=== PATIENT | female | born 1985 | race American Indian/Alaskan Native ===

== ENCOUNTER 2018-12-04 16:30 | Emergency (ER) | payer OTHER ==
--- NOTE | 2018-12-04 17:01 | Emergency Department Report ---
Blank Doc - Documentation Documentation: This is a 33-year-old female that presents with URI symptoms. Stated has chest pain during cough and worse while coughing. This initial assessment/diagnostic orders/clinical plan/treatment(s) is/are subject to change based on patient's health status, clinical progression and re- assessment by fellow clinical providers in the ED. Further treatment and workup at subsequent clinical providers discretion. Patient/guardians urged not to elope from the ED as their condition may be serious if not clinically assessed and managed. Initial orders include: 1- Patient sent to [facility] for further evaluation and treatment 2- EKG 3- CXR
[2018-12-04 17:02] VITALS: BP 151/99
--- NOTE | 2018-12-04 18:11 | XRay Report ---
PROCEDURE: XR CHEST ROUTINE 2V TECHNIQUE: PA and lateral chest radiographs were obtained. HISTORY: cough/cp COMPARISONS: None. FINDINGS: Heart: Normal. Mediastinum/Vessels: Normal. Lungs/Pleural space: No infiltrate, effusion, or pneumothorax. Bony thorax: No acute osseous abnormality. IMPRESSION: No pulmonary infiltrates are identified. This document is electronically signed by Eugenia Ge MD., Dec 04 2018 06:09:43 PM ET
[2018-12-04] MEDS ORDERED: SOLU-Medrol IM ONE (19:51)
[2018-12-04] MEDS ORDERED: TYLENOL PO ONE (19:51)
[2018-12-04] MEDS ORDERED: ZOFRAN ODT PO ONE (19:52)
--- NOTE | 2018-12-04 21:25 | Emergency Department Report ---
- General Chief Complaint: Chest Pain Stated Complaint: CHEST PAIN/VOMIT/COLD Time Seen by Provider: 12/04/18 16:59 Source: patient Mode of arrival: Ambulatory Limitations: No Limitations - History of Present Illness Initial Comments: Patient is a 33-year-old -[place] female with no past medical history presents to the ED with complaint of acute onset persistent nasal and sinus congestion, frontal sinus pressure, dry cough, intermittent nausea and vomiting with diarrhea for the last 4 days. Patient states that in the last 2 days the symptoms have been persistent and that she is unable to sleep. Patient denies fever, chills, dizziness, vomiting, dysuria, urinary frequency and urgency over change in vision or neck pain. Patient states that that is no one else at home with similar symptoms. MD Complaint: cough, sore throat, rhinorrhea, nasal congestion, sinus pain, other (nausea, vomiting and diarrhea) -: Sudden, days(s) (4) Severity: moderate Severity scale (0 -10): 6 Quality: sharp, aching Consistency: constant Improves With: nothing Worsens With: nothing Associated Symptoms: myalgias, headache, rhinorrhea, nasal congestion, sore throat, cough, nausea, vomiting, diarrhea. denies: fever, chills, chest pain, abdominal pain, dysuria, confusion, weight loss, epistaxis, hoarseness, ear pain Treatments Prior to Arrival: none - Related Data Previous Rx's Medication Instructions Recorded Last Taken Type Azithromycin [Zithromax Z-RUBY] 250 mg PO DAILY #6 tablet 12/04/18 Unknown Rx Cetirizine HCl [Zyrtec] 10 mg PO DAILY #30 tablet 12/04/18 Unknown Rx Diphenoxylate/Atropine [Lomotil] 1 tab PO Q4H PRN #15 tablet 12/04/18 Unknown Rx Ibuprofen [Motrin] 800 mg PO Q8HR PRN #20 tablet 12/04/18 Unknown Rx Ondansetron [Zofran Odt] 4 mg PO Q6HR #15 tab.rapdis 12/04/18 Unknown Rx Allergies Allergy/AdvReac Type Severity Reaction Status Date / Time No Known Allergies Allergy Unverified 12/04/18 16:31 ED Review of Systems ROS: Stated complaint: CHEST PAIN/VOMIT/COLD Other details as noted in HPI Constitutional: no symptoms reported, see HPI, malaise, weakness Eyes: as per HPI. denies: eye pain, eye discharge, vision change ENT: as per HPI, throat pain, congestion. denies: ear pain, dental pain, hearing loss, epistaxis Respiratory: no symptoms reported, see HPI, cough. denies: shortness of breath, SOB with exertion, SOB at rest, wheezing Cardiovascular: as per HPI. denies: chest pain, palpitations, dyspnea on exertion, edema, syncope, paroxysmal nocturnal dyspnea Endocrine: no symptoms reported. denies: see HPI, excessive sweating, flushing, intolerance to cold, increased hunger, increased thirst, increased urine, unexplained weight loss Gastrointestinal: as per HPI, nausea, vomiting, diarrhea. denies: abdominal pain, hematemesis, hematochezia Genitourinary: as per HPI. denies: frequency, hematuria, discharge, dyspareunia Musculoskeletal: as per HPI, arthralgia, myalgia. denies: back pain, joint swelling Skin: as per HPI. denies: rash, lesions, change in color, change in hair/nails, pruritus Neurological: as per HPI, headache. denies: weakness, numbness, paresthesias, abnormal gait, vertigo Psychiatric: as per HPI, homicidal thoughts. denies: anxiety, auditory hallucinations, visual hallucinations Hematological/Lymphatic: as per HPI ED Past Medical Hx - Past Medical History Previous Medical History?: No - Surgical History Past Surgical History?: No - Social History Smoking Status: Current Every Day Smoker Substance Use Type: Alcohol, Marijuana - Medications Home Medications: Home Medications Medication Instructions Recorded Confirmed Last Taken Type Azithromycin [Zithromax Z-RUBY] 250 mg PO DAILY #6 tablet 12/04/18 Unknown Rx Cetirizine HCl [Zyrtec] 10 mg PO DAILY #30 tablet 12/04/18 Unknown Rx Diphenoxylate/Atropine [Lomotil] 1 tab PO Q4H PRN #15 tablet 12/04/18 Unknown Rx Ibuprofen [Motrin] 800 mg PO Q8HR PRN #20 tablet 12/04/18 Unknown Rx Ondansetron [Zofran Odt] 4 mg PO Q6HR #15 tab.rapdis 12/04/18 Unknown Rx ED Physical Exam - General Limitations: No Limitations General appearance: alert, in no apparent distress - Head Head exam: Present: atraumatic, normocephalic, normal inspection - Eye Eye exam: Present: normal appearance, PERRL, EOMI. Absent: scleral icterus, conjunctival injection, periorbital swelling, periorbital tenderness Pupils: Present: normal accommodation - ENT ENT exam: Present: normal exam, normal orophraynx, mucous membranes moist, normal external ear exam, other (grossly congested nasal passages) - Neck Neck exam: Present: normal inspection, full ROM - Respiratory Respiratory exam: Present: normal lung sounds bilaterally. Absent: respiratory distress, wheezes, rales, rhonchi, chest wall tenderness, accessory muscle use, decreased breath sounds - Cardiovascular Cardiovascular Exam: Present: regular rate, normal rhythm, normal heart sounds. Absent: bradycardia, tachycardia - GI/Abdominal GI/Abdominal exam: Present: soft, normal bowel sounds. Absent: tenderness, hyperactive bowel sounds, hypoactive bowel sounds - Extremities Exam Extremities exam: Present: normal inspection, full ROM, normal capillary refill. Absent: calf tenderness - Back Exam Back exam: Present: normal inspection, full ROM, tenderness. Absent: CVA tenderness (R), CVA tenderness (L), paraspinal tenderness, vertebral tenderness - Neurological Exam Neurological exam: Present: alert, oriented X3, CN II-XII intact, normal gait, reflexes normal - Psychiatric Psychiatric exam: Present: normal affect - Skin Skin exam: Present: warm, dry, intact, normal color ED Course Vital Signs 12/04/18 17:00 Temperature 99.1 F Pulse Rate 75 Respiratory 20 Rate Blood Pressure 151/99 O2 Sat by Pulse 100 Oximetry ED Medical Decision Making - Radiology Data Radiology results: report reviewed, image reviewed Chest x-ray shows no acute process - Medical Decision Making Patient is alert and oriented 3 and his medicine in distress with normal vital signs. Chest x-ray shows no acute pulmonary abnormalities. On reevaluation, patient vital signs are stable and patient feeling better with treatment. Elena hagen was discharged home with medications and advised follow-up with her primary care physician in 5-7 days for reevaluation. Patient was advised to return to the ED immediately if symptoms get worse. - Differential Diagnosis acute upper resp, flu like symptoms, gastroenteritis Critical care attestation.: If time is entered above; I have spent that time in minutes in the direct care of this critically ill patient, excluding procedure time. ED Disposition Clinical Impression: Acute upper respiratory infection, Acute frontal sinusitis, unspecified, Nausea, vomiting and diarrhea Disposition: - TO HOME OR SELFCARE Is pt being admited?: No Does the pt Need Aspirin: No Condition: Stable Instructions: Acute Nausea and Vomiting (ED), Upper Respiratory Infection (ED), Gastroenteritis (ED) Additional Instructions: Take medications with food drink plenty of fluids and follow up with your Primary care physician as advised. Return to the ED immediately if symptoms get worse Prescriptions: Diphenoxylate/Atropine [Lomotil] 1 tab PO Q4H PRN #15 tablet PRN Reason: Diarrhea Ibuprofen [Motrin] 800 mg PO Q8HR PRN #20 tablet PRN Reason: Pain , Severe (7-10) Azithromycin [Zithromax Z-RUBY] 250 mg PO DAILY #6 tablet Ondansetron [Zofran Odt] 4 mg PO Q6HR #15 tab.rapdis Cetirizine HCl [Zyrtec] 10 mg PO DAILY #30 tablet Referrals: [facility] MD YAZAN [Primary Care Provider] - 3-5 Days Time of Disposition: 21:28 Print Language: MONEGASQUE
== END 2018-12-04 21:35 | disposition home or self-care (01) ==
LOC: ED 16:30
DX: J01.10 Acute frontal sinusitis, unspecified (principal); R11.2 Nausea with vomiting, unspecified; R19.7 Diarrhea, unspecified; M79.10 Myalgia, unspecified site; F17.200 Nicotine dependence, unspecified, uncomplicated; F12.10 Cannabis abuse, uncomplicated
CPT/HCPCS: 71046; 93005; 93010; 96372; 99283; J2930; Q0162

== ENCOUNTER 2019-01-02 15:02 | Emergency (ER) | payer SELFPAY ==
--- NOTE | 2019-01-02 15:38 | Emergency Department Report ---
Chief Complaint: Extremity Injury, Lower Stated Complaint: BI KNEE/LEG INJURY Time Seen by Provider: 01/02/19 15:35 - HPI History of Present Illness: This is a 33 y.o. F. that presents to the ER with bilateral knee pain for 4 days. Patient states she slipped on gravel at [employer] and fell to knees. - Exam Vital Signs: Vital Signs 01/02/19 15:35 Temperature 98.5 F Pulse Rate 78 Respiratory 18 Rate Blood Pressure 137/93 O2 Sat by Pulse 95 Oximetry MSE screening note: Focused history and physical exam performed. Due to findings the following was ordered: This initial assessment/diagnostic orders/clinical plan/treatment(s) is/are subject to change based on patient's health status, clinical progression and re- assessment by fellow clinical providers in the ED. Further treatment and workup at subsequent clinical providers discretion. Patient/guardians urged not to elope from the ED as their condition may be serious if not clinically assessed and managed. Initial orders include: XR bilateral knees [facility] for further evaluation ED Disposition for MSE Condition: Stable
--- NOTE | 2019-01-02 16:58 | XRay Report ---
PROCEDURE: XR KNEE BILAT 3V TECHNIQUE: Bilateral knees, 3 views HISTORY: bilateral knee pain, fall COMPARISONS: None available FINDINGS: Within the right knee there is medial joint space narrowing. No fracture or dislocation is seen bilaterally. No large joint effusion is seen bilaterally. No focal osseous lesions. IMPRESSION: No fracture or dislocation is seen bilaterally. This document is electronically signed by Eugenia Ge MD., January 02 2019 04:56:24 PM ET
[2019-01-02] MEDS ORDERED: TYLENOL PO ONE (19:19)
[2019-01-02] MEDS ORDERED: IBUPROFEN PO ONE (19:19)
[2019-01-02] MEDS ORDERED: ZOFRAN ODT PO ONE (19:29)
[2019-01-02] MEDS ORDERED: NORCO 5/325 PO ONE (19:29)
[2019-01-02 20:13] VITALS: BP 111/68
--- NOTE | 2019-01-02 20:26 | Emergency Department Report ---
ED Lower Extremity HPI - General Chief Complaint: Extremity Injury, Lower Stated Complaint: BI KNEE/LEG INJURY Time Seen by Provider: 01/02/19 15:35 Source: patient Mode of arrival: Wheelchair Limitations: No Limitations - History of Present Illness Initial Comments: Patient is a 33-year-old -[place] female with no past medical history presents to the ED with complaint of acute onset persistent pain in bilateral knees and swelling after she tripped and fell down at [employer] 4 days ago and landed on her knees. Patient states that the pain was initially mild but in the last 3 days the patient has been worsening such that she is unable to ambulate because of severe pain. Patient denies head or neck injury, hip pain, low back pain, chest pain, shortness of breath, dizziness, numbness and tingling of lower extremities bilaterally or loss of consciousness and head injury. MD Complaint: knee injury (bilateral) -: Sudden, days(s) (4) Injury: Knee: Right, Left (Pain and swelling) Type of Injury: blunt Place: street/outdoors Severity: severe Severity scale (0 -10): 8 Improves With: nothing Worsens With: weight bearing, movement, palpation Context: fall Other Symptoms: other (None) Associated Symptoms: swelling, able to partially bear weight. denies: numbness, tingling, ambulatory Treatments Prior to Arrival: NSAIDS - Related Data Previous Rx's Medication Instructions Recorded Last Taken Type Azithromycin [Zithromax Z-RUBY] 250 mg PO DAILY #6 tablet 12/04/18 Unknown Rx Cetirizine HCl [Zyrtec] 10 mg PO DAILY #30 tablet 12/04/18 Unknown Rx Diphenoxylate/Atropine [Lomotil] 1 tab PO Q4H PRN #15 tablet 12/04/18 Unknown Rx Ibuprofen [Motrin] 800 mg PO Q8HR PRN #20 tablet 12/04/18 Unknown Rx Ondansetron [Zofran Odt] 4 mg PO Q6HR #15 tab.rapdis 12/04/18 Unknown Rx Acetaminophen/Codeine [Tylenol 1 tab PO Q6H PRN #15 tab 01/02/19 Unknown Rx /Codeine # 3 tab] Ibuprofen [Motrin] 800 mg PO Q8HR PRN #20 tablet 01/02/19 Unknown Rx methOCARBAMOL [Robaxin TAB] 500 mg PO Q8H PRN #21 tablet 01/02/19 Unknown Rx Allergies Allergy/AdvReac Type Severity Reaction Status Date / Time No Known Allergies Allergy Verified 01/02/19 15:13 ED Review of Systems ROS: Stated complaint: BI KNEE/LEG INJURY Other details as noted in HPI Comment: All other systems reviewed and negative Constitutional: no symptoms reported, see HPI. denies: chills, diaphoresis, fever, malaise Eyes: as per HPI. denies: eye discharge, vision change ENT: as per HPI. denies: ear pain, throat pain, dental pain, hearing loss Respiratory: no symptoms reported, see HPI. denies: cough, orthopnea, shortness of breath, SOB with exertion, SOB at rest Cardiovascular: as per HPI. denies: chest pain, palpitations, dyspnea on exertion, orthopnea, edema, syncope, paroxysmal nocturnal dyspnea Endocrine: no symptoms reported, see HPI. denies: excessive sweating, flushing, intolerance to cold, intolerance to heat, increased hunger, increased thirst Gastrointestinal: as per HPI. denies: abdominal pain, nausea, vomiting, diarrhea, constipation, hematemesis Genitourinary: as per HPI. denies: urgency, dysuria, frequency, hematuria, abnormal menses, dyspareunia Musculoskeletal: as per HPI, joint swelling (bilateral knees), arthralgia. denies: back pain Skin: as per HPI. denies: rash, lesions, change in color, change in hair/nails Neurological: as per HPI. denies: headache, weakness, numbness, paresthesias, confusion, abnormal gait, vertigo Psychiatric: as per HPI Hematological/Lymphatic: as per HPI ED Past Medical Hx - Past Medical History Previous Medical History?: No - Surgical History Past Surgical History?: No - Social History Smoking Status: Never Smoker Substance Use Type: Alcohol - Medications Home Medications: Home Medications Medication Instructions Recorded Confirmed Last Taken Type Azithromycin [Zithromax Z-RUBY] 250 mg PO DAILY #6 tablet 12/04/18 Unknown Rx Cetirizine HCl [Zyrtec] 10 mg PO DAILY #30 tablet 12/04/18 Unknown Rx Diphenoxylate/Atropine [Lomotil] 1 tab PO Q4H PRN #15 tablet 12/04/18 Unknown Rx Ibuprofen [Motrin] 800 mg PO Q8HR PRN #20 tablet 12/04/18 Unknown Rx Ondansetron [Zofran Odt] 4 mg PO Q6HR #15 tab.rapdis 12/04/18 Unknown Rx Acetaminophen/Codeine [Tylenol 1 tab PO Q6H PRN #15 tab 01/02/19 Unknown Rx /Codeine # 3 tab] Ibuprofen [Motrin] 800 mg PO Q8HR PRN #20 tablet 01/02/19 Unknown Rx methOCARBAMOL [Robaxin TAB] 500 mg PO Q8H PRN #21 tablet 01/02/19 Unknown Rx ED Physical Exam - General Limitations: No Limitations General appearance: alert, in no apparent distress - Head Head exam: Present: atraumatic, normocephalic, normal inspection - Eye Eye exam: Present: normal appearance, PERRL, EOMI. Absent: scleral icterus, conjunctival injection Pupils: Present: normal accommodation - ENT ENT exam: Present: normal exam, normal orophraynx, mucous membranes moist, TM's normal bilaterally, normal external ear exam - Neck Neck exam: Present: normal inspection, full ROM. Absent: tenderness, lymphadenopathy - Respiratory Respiratory exam: Present: normal lung sounds bilaterally. Absent: respiratory distress, wheezes, rales, rhonchi, chest wall tenderness, accessory muscle use, decreased breath sounds - Cardiovascular Cardiovascular Exam: Present: regular rate, normal rhythm - GI/Abdominal GI/Abdominal exam: Present: soft, normal bowel sounds. Absent: distended, tenderness, guarding, hyperactive bowel sounds, hypoactive bowel sounds, organomegaly - Rectal Rectal exam: Present: deferred - Extremities Exam Extremities exam: Present: normal inspection, tenderness (bilateral knees), normal capillary refill, joint swelling (bilateral knees). Absent: full ROM (de creased due to pain), pedal edema, calf tenderness - Back Exam Back exam: Present: normal inspection, full ROM. Absent: tenderness, CVA tenderness (R), CVA tenderness (L), muscle spasm - Neurological Exam Neurological exam: Present: alert, oriented X3, CN II-XII intact, normal gait, reflexes normal - Psychiatric Psychiatric exam: Present: normal affect - Skin Skin exam: Present: warm, dry, intact, ecchymosis (bilateral knees) ED Course Vital Signs 01/02/19 01/02/19 15:35 19:57 Temperature 98.5 F 98.0 F Pulse Rate 78 60 Respiratory 18 16 Rate Blood Pressure 137/93 111/68 O2 Sat by Pulse 95 100 Oximetry - Reevaluation(s) Reevaluation #1: 01/02/19 20:27 Patient is alert and oriented 3 and is not in distress with stable vital signs. The bilateral knee x-rays show no acute fractures or subluxations. The patient was treated for pain in the ED and discharged with a knee splinted with Harinder wraps. Patient was discharged home after being fitted with crutches, and is at home on pain medications and muscle relaxants, and patient advised to follow up with her primary care physician in 3-5 days for reevaluation or return to the ED immediately if symptoms get worse. ED Lower Extremity MDM - Radiology Data Radiology results: report reviewed, image reviewed No acute fractures - Medical Decision Making Patient is alert and oriented 3 and is not in distress with stable vital signs. The bilateral knee x-rays show no acute fractures or subluxations. The patient was treated for pain in the ED and discharged with a knee splinted with Harinder wraps. Patient's injuries are soft tissue-based since no fractures appreciated in the x-rays. However, cannot rule out a ligament injury from each of the knees. Patient was discharged home after being fitted with crutches, and is at home on pain medications and muscle relaxants, and patient advised to follow up with her primary care physician in 3-5 days for reevaluation or return to the ED immediately if symptoms get worse. - Differential Diagnosis Bilateral knee contusions; Bilateral knee sprains, knee ligament injuries Critical care attestation.: If time is entered above; I have spent that time in minutes in the direct care of this critically ill patient, excluding procedure time. ED Disposition Clinical Impression: Knee sprain, bilateral, Contusion of knee with skin surface intact Disposition: DC-01 TO HOME OR SELFCARE Is pt being admited?: No Does the pt Need Aspirin: No Condition: Stable Instructions: Knee Pain (ED), Knee Sprain (ED), Contusion in Adults (ED) Additional Instructions: Take medications with food, drink plenty of fluids and follow up with your primary care physician in 3-5 days for reevaluation. Return to the ED immediately if symptoms get worse. Prescriptions: Ibuprofen [Motrin] 800 mg PO Q8HR PRN #20 tablet PRN Reason: Pain , Severe (7-10) methOCARBAMOL [Robaxin TAB] 500 mg PO Q8H PRN #21 tablet PRN Reason: Spasms Acetaminophen/Codeine [Tylenol /Codeine # 3 tab] 1 tab PO Q6H PRN #15 tab PRN Reason: Pain , Severe (7-10) Referrals: TARUN KRISHNAMURTHY MD [Primary Care Provider] - 3-5 Days Forms: Work/School Release Form(ED) Time of Disposition: 20:32 Print Language: DUTCH
== END 2019-01-02 20:55 | disposition home or self-care (01) ==
LOC: ED 15:02
DX: S83.92XA Sprain of unspecified site of left knee, initial encounter (principal); S83.91XA Sprain of unspecified site of right knee, initial encounter; S80.02XA Contusion of left knee, initial encounter; S80.01XA Contusion of right knee, initial encounter; W01.0XXA Fall on same level from slipping, tripping and stumbling without subsequent striking against object, initial encounter; Y93.89 Activity, other specified; Y92.89 Other specified places as the place of occurrence of the external cause; Y99.8 Other external cause status
CPT/HCPCS: Q0162

== ENCOUNTER 2019-12-25 16:37 | Emergency (ER) | payer SELFPAY ==
[2019-12-25] MEDS ORDERED: ASPIRIN 325 MG TAB PO ONE (16:57)
--- NOTE | 2019-12-25 17:24 | XRay Report ---
CHEST 2 VIEWS INDICATION / CLINICAL INFORMATION: Chest Pain. COMPARISON: 12/04/2018. FINDINGS: SUPPORT DEVICES: None. HEART / MEDIASTINUM: The heart size and pulmonary vasculature are normal. The aorta is normal in chay teresa. LUNGS / PLEURA: No significant pulmonary or pleural abnormality. No pneumothorax. ADDITIONAL FINDINGS: No significant additional findings. IMPRESSION: No acute findings. Signer Name: Galindo Almendarez MD Signed: 12/25/2019 5:20 PM Workstation Name: [id number]
[2019-12-25 18:21] LABS: Basophils % (Auto) 0.7 % (0.0-1.8); Eosinophils # (Auto) 0.3 K/mm3 (0.0-0.4); Eosinophils % (Auto) 4.3 % (0.0-4.3); Hematocrit 35.3 % (30.3-42.9); Hemoglobin 11.8 gm/dl (10.1-14.3); Lymphocytes # (Auto) 2.8 K/mm3 (1.2-5.4); Lymphocytes % (Auto) 38.1 % (13.4-35.0); Mean Corpuscular HGB Conc 33 % (30-34); Mean Corpuscular Volume 72 fl (79-97); Monocytes # (Auto) 0.6 K/mm3 (0.0-0.8); Monocytes % (Auto) 8.1 % (0.0-7.3); Platelet Count 288 K/mm3 (140-440); Red Blood Count 4.93 M/mm3 (3.65-5.03); Red Cell Distribution Width 15.3 % (13.2-15.2)
[2019-12-25 18:47] LABS: BUN/Creatinine Ratio 16; Blood Urea Nitrogen 14 mg/dL (7-17); Calcium 9.6 mg/dL (8.4-10.2); Hemolysis Index 2
--- NOTE | 2019-12-25 19:59 | Emergency Department Report ---
ED Chest Pain HPI - General Chief Complaint: Chest Pain Stated Complaint: ELEVATED BLOOD PRESSURE Source: patient Mode of arrival: Ambulatory Limitations: No Limitations - History of Present Illness Initial Comments: 34-year-old female with no known past medical history, presents to ED with chest pain and headache. Patient reports pain has been intermittent for approximately 4 months now. She states the pain is left-sided, sharp, lasts for only a few seconds at a time. She denies any associated shortness of breath, nausea or vomiting, diaphoresis, leg pain or swelling. Patient also reports that she has been having left-sided headaches over the last week with some associated dizziness. Patient states today she had chest pain and headache at the same time, so she decided to go to an urgent care facility. Patient states her blood pressure was elevated at home, and at the urgent care, and she was instructed to come to the ER. Patient denies any known history of hypertension, not currently taking any medications. Patient states at this time, headache and chest pain have resolved. MD Complaint: chest pain -: month(s) (4) Onset: during rest Pain Location: left chest Pain Radiation: none Severity: moderate Quality: sharp Consistency: intermittent Improves With: nothing Worsens With: nothing re: nausea. denies: vomting, diaphoresis, dyspnea Other Symptoms: denies: cough, fever, leg swelling - Related Data Previous Rx's Medication Instructions Recorded Last Taken Type Azithromycin [Zithromax Z-RUBY] 250 mg PO DAILY #6 tablet 12/04/18 Unknown Rx Cetirizine HCl [Zyrtec] 10 mg PO DAILY #30 tablet 12/04/18 Unknown Rx Diphenoxylate/Atropine [Lomotil] 1 tab PO Q4H PRN #15 tablet 12/04/18 Unknown Rx Ibuprofen [Motrin] 800 mg PO Q8HR PRN #20 tablet 12/04/18 Unknown Rx Ondansetron [Zofran Odt] 4 mg PO Q6HR #15 tab.rapdis 12/04/18 Unknown Rx Acetaminophen/Codeine [Tylenol 1 tab PO Q6H PRN #15 tab 01/02/19 Unknown Rx /Codeine # 3 tab] Ibuprofen [Motrin] 800 mg PO Q8HR PRN #20 tablet 01/02/19 Unknown Rx methOCARBAMOL [Robaxin TAB] 500 mg PO Q8H PRN #21 tablet 01/02/19 Unknown Rx Butalb/Acetamin/Caff 50-325-40 1 tab PO Q6HR PRN #10 tab 12/25/19 Unknown Rx [Fioricet] Allergies Allergy/AdvReac Type Severity Reaction Status Date / Time No Known Allergies Allergy Verified 01/02/19 15:13 Heart Score - HEART Score History: Slightly suspicious EKG: Normal Age: < 45 Risk factors: 1-2 risk factors Troponin: < normal limit HEART Score: 1 ED Review of Systems ROS: Stated complaint: ELEVATED BLOOD PRESSURE Other details as noted in HPI Comment: All other systems reviewed and negative Constitutional: denies: chills, fever ENT: denies: throat pain Respiratory: denies: cough, shortness of breath Cardiovascular: chest pain Gastrointestinal: nausea. denies: vomiting Neurological: headache. denies: weakness, numbness ED Past Medical Hx - Past Medical History Previous Medical History?: No - Surgical History Past Surgical History?: No - Social History Smoking Status: Never Smoker Substance Use Type: None - Medications Home Medications: Home Medications Medication Instructions Recorded Confirmed Last Taken Type Azithromycin [Zithromax Z-RUBY] 250 mg PO DAILY #6 tablet 12/04/18 Unknown Rx Cetirizine HCl [Zyrtec] 10 mg PO DAILY #30 tablet 12/04/18 Unknown Rx Diphenoxylate/Atropine [Lomotil] 1 tab PO Q4H PRN #15 tablet 12/04/18 Unknown Rx Ibuprofen [Motrin] 800 mg PO Q8HR PRN #20 tablet 12/04/18 Unknown Rx Ondansetron [Zofran Odt] 4 mg PO Q6HR #15 tab.rapdis 12/04/18 Unknown Rx Acetaminophen/Codeine [Tylenol 1 tab PO Q6H PRN #15 tab 01/02/19 Unknown Rx /Codeine # 3 tab] Ibuprofen [Motrin] 800 mg PO Q8HR PRN #20 tablet 01/02/19 Unknown Rx methOCARBAMOL [Robaxin TAB] 500 mg PO Q8H PRN #21 tablet 01/02/19 Unknown Rx Butalb/Acetamin/Caff 50-325-40 1 tab PO Q6HR PRN #10 tab 12/25/19 Unknown Rx [Fioricet] ED Physical Exam - General Limitations: No Limitations General appearance: alert, in no apparent distress, obese - Head Head exam: Present: atraumatic, normocephalic - Eye Eye exam: Present: normal appearance, PERRL, EOMI - ENT ENT exam: Present: mucous membranes moist - Neck Neck exam: Present: normal inspection - Respiratory Respiratory exam: Present: normal lung sounds bilaterally. Absent: respiratory distress - Cardiovascular Cardiovascular Exam: Present: regular rate, normal rhythm - GI/Abdominal GI/Abdominal exam: Present: soft. Absent: distended, tenderness - Extremities Exam Extremities exam: Present: normal inspection. Absent: pedal edema, calf tenderness - Neurological Exam Neurological exam: Present: alert, oriented X3, CN II-XII intact. Absent: motor sensory deficit - Psychiatric Psychiatric exam: Present: normal affect, normal mood - Skin Skin exam: Present: warm, dry, intact, normal color ED Course Vital Signs 12/25/19 12/25/19 12/25/19 16:55 20:10 22:39 Temperature 98.6 F Pulse Rate 71 69 59 L Respiratory 14 16 16 Rate Blood Pressure 153/100 Blood Pressure 119/80 120/82 [Left] O2 Sat by Pulse 100 100 100 Oximetry ED Medical Decision Making - Lab Data Result diagrams: 12/25/19 17:44 12/25/19 17:44 - EKG Data -: EKG Interpreted by Wy EKG shows normal: sinus rhythm, axis, intervals, QRS complexes, ST-T waves Rate: normal - EKG Data Interpretation: no acute changes - Radiology Data Radiology results: report reviewed, image reviewed - Medical Decision Making Workup unremarkable. EKG normal, troponin negative x 2. CT Head negative. No neuro deficits on exam. BP improved without intervention. Fioricet given for JANG. Pt reports relief of pain. Pt feels comfortable w/ discharge home. Outpt f/u advised, return precautions given. - Differential Diagnosis ACS, tension JANG, hypertensive JANG, migraine JANG Critical care attestation.: If time is entered above; I have spent that time in minutes in the direct care of this critically ill patient, excluding procedure time. ED Disposition Clinical Impression: Headache, acute, Chest pain Disposition: TO HOME OR SELFCARE Is pt being admited?: No Condition: Stable Instructions: Chest Pain (ED), Acute Headache (ED) Prescriptions: Butalb/Acetamin/Caff 50-325-40 [Fioricet] 1 tab PO Q6HR PRN #10 tab PRN Reason: Headache Referrals: PRIMARY CARE, [Primary Care Provider] - 3-5 Days [facility] [Provider Group] - 3-5 Days Time of Disposition: 22:18
[2019-12-25] MEDS ORDERED: BUTALB/ACETAMINOPHEN/CAFFEINE TAB PO ONE (20:58)
--- NOTE | 2019-12-25 21:36 | Cat Scan Report ---
CT HEAD WITHOUT CONTRAST INDICATION / CLINICAL INFORMATION: Headache TECHNIQUE: All CT scans at this location are performed using CT dose reduction for ALARA by means of automated e xposure control. COMPARISON: None available. FINDINGS: HEMORRHAGE: No evidence of intracranial hemorrhage or extra-axial fluid collection. EXTRA-AXIAL SPACES: Cortical sulci, sylvian fissures and basilar cisterns have an unremarkable appear ance. VENTRICULAR SYSTEM: The ventricular system is of normal size and configuration. CEREBRAL PARENCHYMA: No areas of abnormal brain parenchymal attenuation are identified. There is no i ndication of recent infarction. MIDLINE SHIFT OR HERNIATION: There is no mass effect. CEREBELLUM / BRAINSTEM: Brainstem and cerebellum have an unremarkable appearance. Sella turcica: Sella turcica is dilated but largely filled with CSF attenuation material consistent w ith "empty sella turcica". INTRACRANIAL VESSELS:No abnormalities are identified on this noncontrast head CT. ORBITS: visualized portions of the orbits have an unremarkable appearance. SOFT TISSUES of HEAD: No significant abnormality. CALVARIUM: Evaluation of bone windows reveals no abnormalities. PARANASAL SINUSES / MASTOID AIR CELLS: Air-fluid level is present in the dependent portion of the rig ht sphenoid sinus. Paranasal sinuses are otherwise free from inflammatory mucosal disease. Mastoid ai r cells are normally pneumatized. ADDITIONAL FINDINGS: None. IMPRESSION: 1. No intracranial abnormality. 2. Inflammatory changes right sphenoid sinus. Signer Name: Michael Espinal MD Signed: 12/25/2019 9:32 PM Workstation Name: [id number]
[2019-12-25 22:39] VITALS: BP 120/82
== END 2019-12-25 22:51 | disposition home or self-care (01) ==
LOC: ED 16:37
DX: R07.89 Other chest pain (principal); R51 Headache
CPT/HCPCS: 36415; 70450; 71046; 80048; 84484; 85025; 93005

== ENCOUNTER 2020-10-10 18:23 | Emergency (ER) | payer SELFPAY ==
--- NOTE | 2020-10-10 18:58 | Event Note ---
ED Screening Note ED Screening Note: CO CP AND DIZZY BP ELEVATED DID NOT FOLLOW UP P SEEN IN NOVEMBER OF THIS YEAR This initial assessment/diagnostic orders/clinical plan/treatment(s) is/are subject to change based on patients health status, clinical progression and re- assessment by fellow clinical providers in the ED. Further treatment and workup at subsequent clinical providers discretion. Patient/guardian urged not to elope from the ED as their condition may be serious if not clinically assessed and managed. Initial orders include: LABS CT
[2020-10-10 19:14] LABS: Hematocrit 41.2 % (30.3-42.9); Hemoglobin 12.9 gm/dl (10.1-14.3); Mean Corpuscular HGB Conc 31 % (30-34); Mean Corpuscular Volume 75 fl (79-97); Platelet Count 263 K/mm3 (140-440); Red Blood Count 5.49 M/mm3 (3.65-5.03); Red Cell Distribution Width 14.5 % (13.2-15.2)
[2020-10-10 19:38] LABS: Alanine Aminotransferase 12 units/L (7-56); Albumin 4.3 g/dL (3.9-5); BUN/Creatinine Ratio 9; Blood Urea Nitrogen 7 mg/dL (7-17); Calcium 9.4 mg/dL (8.4-10.2); Hemolysis Index 16
[2020-10-10 19:57] LABS: Total Cells Counted 100
[2020-10-10 19:59] LABS: Ovalocytes Few; Platelet Estimate Consistent w Auto
--- NOTE | 2020-10-10 20:04 | Cat Scan Report ---
CT head/brain wo con INDICATION / CLINICAL INFORMATION: 35 years Female; DIZZY WITH HTN. TECHNIQUE: Routine CT head without contrast. All CT scans at this location are performed using CT dos e reduction for ALARA by means of automated exposure control. COMPARISON: The study is compared to previous CT of 12/25/2019. FINDINGS: BRAIN / INTRACRANIAL CONTENTS: The beam hardening degrades image quality. However, the brain appears to demonstrate appropriate attenuation without significant interval change. The ventricular system al so remains within normal limits in size and configuration. There is no clear CT evidence of acute int racranial hemorrhage or significant mass effect. ORBITS: No significant abnormality of visualized orbits. SINUSES / MASTOIDS: There is continued opacification involving posterior right sphenoid sinus. CRANIOCERVICAL JUNCTION: No significant abnormality. ADDITIONAL FINDINGS: None. IMPRESSION: 1. There is no CT evidence of acute intracranial process. 2. There is persistent opacification on the posterior right sphenoid sinus. Signer Name: Zeb Evans MD Signed: 10/10/2020 8:00 PM Workstation Name: [id number]
[2020-10-10 21:57] LABS: HCG Qualitative,Urine Negative (Negative)
[2020-10-10 22:01] LABS: Bilirubin,Urine NEG (Negative); Blood,Urine NEG (Negative); Color,Urine Straw (Yellow); Mucus,Urine FEW /HPF; Protein,Urine <15 mg/dL mg/dL (Negative); Urobilinogen,Urine < 2.0 mg/dL (<2.0)
--- NOTE | 2020-10-10 22:27 | XRay Report ---
CHEST 1 VIEW 10/10/2020 10:22 PM INDICATION / CLINICAL INFORMATION: chest pain. COMPARISON: 12/25/2019 FINDINGS: SUPPORT DEVICES: None. HEART / MEDIASTINUM: No significant abnormality. LUNGS / PLEURA: No significant pulmonary or pleural abnormality. No pneumothorax. ADDITIONAL FINDINGS: No significant additional findings. IMPRESSION: 1. No acute findings. Signer Name: Galindo Bergman MD Signed: 10/10/2020 10:22 PM Workstation Name: [id number]
[2020-10-10] MEDS ORDERED: cloNIDine 0.2 MG TAB PO ONE (22:36)
--- NOTE | 2020-10-10 23:31 | Emergency Department Report ---
ED Dizziness HPI - General Chief Complaint: High BP Stated Complaint: BLOOD PRESSURE HIGH/DIZZY Time Seen by Provider: 10/10/20 18:57 Source: patient Mode of arrival: Ambulatory Limitations: No Limitations - History of Present Illness Initial Comments: 35-year-old female presents to ED with dizziness and elevated blood pressure. Patient denies diagnosis of hypertension. However, she reports that she has been checking her blood pressure at home and it has been intermittently high. Patient states that she followed up with her PCP as she states at her doctor's visit her blood pressure was normal, so she was not placed on any BP meds at that time. Today, patient felt somewhat lightheaded with a very mild headache so she decided to take her blood pressure and found that it was elevated. Patient decided to come to the emergency room. She denies any chest pain but reports that she had some mild epigastric discomfort earlier. She denies any s hortness of breath, nausea or vomiting. MD Complaint: dizziness -: days(s) (1) Description: lightheadedness History of Trauma: No Severity: moderate Improves With: nothing Worsens With: nothing Associated Symptoms: denies: ataxia, chest pain, cough, fever/chills, shortness of breath - Related Data Previous Rx's Medication Instructions Recorded Last Taken Type Azithromycin [Zithromax Z-RUBY] 250 mg PO DAILY #6 tablet 12/04/18 Unknown Rx Cetirizine HCl [Zyrtec] 10 mg PO DAILY #30 tablet 12/04/18 Unknown Rx Diphenoxylate/Atropine [Lomotil] 1 tab PO Q4H PRN #15 tablet 12/04/18 Unknown Rx Ibuprofen [Motrin] 800 mg PO Q8HR PRN #20 tablet 12/04/18 Unknown Rx Ondansetron [Zofran Odt] 4 mg PO Q6HR #15 tab.rapdis 12/04/18 Unknown Rx Acetaminophen/Codeine [Tylenol 1 tab PO Q6H PRN #15 tab 01/02/19 Unknown Rx /Codeine # 3 tab] Ibuprofen [Motrin] 800 mg PO Q8HR PRN #20 tablet 01/02/19 Unknown Rx methOCARBAMOL [Robaxin TAB] 500 mg PO Q8H PRN #21 tablet 01/02/19 Unknown Rx Butalb/Acetamin/Caff 50-325-40 1 tab PO Q6HR PRN #10 tab 12/25/19 Unknown Rx [Fioricet] hydroCHLOROthiazide [HCTZ] 25 mg PO QDAY #30 tablet 10/10/20 Unknown Rx Allergies Allergy/AdvReac Type Severity Reaction Status Date / Time No Known Allergies Allergy Verified 01/02/19 15:13 ED Review of Systems ROS: Stated complaint: BLOOD PRESSURE HIGH/DIZZY Other details as noted in HPI Comment: All other systems reviewed and negative Constitutional: denies: fever Respiratory: denies: cough, shortness of breath Cardiovascular: denies: chest pain Gastrointestinal: abdominal pain. denies: nausea, vomiting Neurological: headache. denies: weakness, numbness, abnormal gait, vertigo ED Past Medical Hx - Past Medical History Previous Medical History?: No - Surgical History Past Surgical History?: No - Social History Smoking Status: Never Smoker - Medications Home Medications: Home Medications Medication Instructions Recorded Confirmed Last Taken Type Azithromycin [Zithromax Z-RUBY] 250 mg PO DAILY #6 tablet 12/04/18 Unknown Rx Cetirizine HCl [Zyrtec] 10 mg PO DAILY #30 tablet 12/04/18 Unknown Rx Diphenoxylate/Atropine [Lomotil] 1 tab PO Q4H PRN #15 tablet 12/04/18 Unknown Rx Ibuprofen [Motrin] 800 mg PO Q8HR PRN #20 tablet 12/04/18 Unknown Rx Ondansetron [Zofran Odt] 4 mg PO Q6HR #15 tab.rapdis 12/04/18 Unknown Rx Acetaminophen/Codeine [Tylenol 1 tab PO Q6H PRN #15 tab 01/02/19 Unknown Rx /Codeine # 3 tab] Ibuprofen [Motrin] 800 mg PO Q8HR PRN #20 tablet 01/02/19 Unknown Rx methOCARBAMOL [Robaxin TAB] 500 mg PO Q8H PRN #21 tablet 01/02/19 Unknown Rx Butalb/Acetamin/Caff 50-325-40 1 tab PO Q6HR PRN #10 tab 12/25/19 Unknown Rx [Fioricet] hydroCHLOROthiazide [HCTZ] 25 mg PO QDAY #30 tablet 10/10/20 Unknown Rx ED Physical Exam - General Limitations: No Limitations General appearance: alert, in no apparent distress, obese - Head Head exam: Present: atraumatic, normocephalic - Eye Eye exam: Present: normal appearance, PERRL, EOMI - ENT ENT exam: Present: mucous membranes moist - Neck Neck exam: Present: normal inspection, full ROM - Respiratory Respiratory exam: Present: normal lung sounds bilaterally. Absent: respiratory distress - Cardiovascular Cardiovascular Exam: Present: regular rate, normal rhythm - GI/Abdominal GI/Abdominal exam: Present: soft. Absent: distended, tenderness - Extremities Exam Extremities exam: Present: normal inspection - Neurological Exam Neurological exam: Present: alert, oriented X3, CN II-XII intact. Absent: motor sensory deficit - Psychiatric Psychiatric exam: Present: normal affect, normal mood - Skin Skin exam: Present: warm, dry, intact, normal color ED Course Vital Signs 10/10/20 10/10/20 10/10/20 19:00 22:15 22:30 Temperature 98.8 F Pulse Rate 86 82 Respiratory 18 18 17 Rate Blood Pressure 184/106 Blood Pressure 158/110 [Right] O2 Sat by Pulse 100 97 Oximetry 10/10/20 10/10/20 10/10/20 22:46 23:00 23:30 Temperature Pulse Rate 79 77 76 Respiratory 17 17 21 Rate Blood Pressure 165/112 159/108 135/91 Blood Pressure [Right] O2 Sat by Pulse 99 98 98 Oximetry ED Medical Decision Making - Lab Data Result diagrams: 10/10/20 19:01 10/10/20 19:01 - EKG Data -: EKG Interpreted by [facility] EKG shows normal: sinus rhythm, axis, intervals, QRS complexes, ST-T waves Rate: normal - EKG Data Interpretation: no acute changes - Radiology Data Radiology results: report reviewed, image reviewed - Medical Decision Making 35-year-old female presents to ED with dizziness x1 day. Patient reports elevated blood pressure when checking at home. Patient hypertensive here in the ED as well. Neuro exam is normal. Gait is normal. EKG is normal. Labs are unremarkable. CT head shows no acute abnormalities. Patient given clonidine here in the ED for her blood pressure, which did improve. Patient is feeling much better at this time and is comfortable with discharge home. I will start patient on antihypertensives. She is advised to follow-up with her PCP. Return precautions given. - Differential Diagnosis Hypertension, intracranial abnormality, ACS Critical care attestation.: If time is entered above; I have spent that time in minutes in the direct care of this critically ill patient, excluding procedure time. ED Disposition Clinical Impression: Uncontrolled hypertension Disposition: DC-01 TO HOME OR SELFCARE Is pt being admited?: No Condition: Stable Instructions: Hypertension, Adult, [id number], Hypertension (ED) Prescriptions: hydroCHLOROthiazide [HCTZ] 25 mg PO QDAY #30 tablet Referrals: PRIMARY CARE,MD [Primary Care Provider] - 3-5 Days Forms: Work/School Release Form(ED) Time of Disposition: 23:33 HEART Score - HEART Score History: Slightly suspicious EKG: Normal Age: < 45 Risk factors: 1-2 risk factors Troponin: Troponin T < 0.010 ng/mL (0.00-0.029) 10/10/20 22:22 Troponin: < normal limit HEART Score: 1
[2020-10-10 23:39] VITALS: BP 135/91
== END 2020-10-10 23:55 | disposition home or self-care (01) ==
LOC: ED 18:23
DX: I10 Essential (primary) hypertension (principal); Z79.899 Other long term (current) drug therapy
CPT/HCPCS: 36415; 70450; 71045; 80053; 81001; 81025; 84484; 85007; 85025; 93005